=== PATIENT | female | born 1990 | race Caucasian/White ===

== ENCOUNTER 2024-08-15 09:40 | Emergency (ER) | payer OTHER, SELFPAY ==
[2024-08-15 09:47] VITALS: BP 119/100
[2024-08-15 10:32] VITALS: BMI 29.9
[2024-08-15] MEDS: MOTRIN 600 MG PO (11:04)
[2024-08-15 11:24] LABS: COVID-19 Antigen Negative (Negative)
[2024-08-15 12:07] VITALS: BP 126/71
[2024-08-15 12:18] LABS: Urine Albumin Negative (Neg - Trace); Urine Bilirubin Negative (Negative); Urine Character Clear (Clear); Urine Color Yellow; Urine Glucose Negative (Negative); Urine Ketone Negative (Negative); Urine Leukocyte 1+ (Negative); Urine Nitrite Negative (Negative); Urine Occult Blood Negative (Negative); Urine Specific Gravity 1.015 (<1.030); Urine Urobilinogen Negative (Neg - 1+)
[2024-08-15 12:21] LABS: HCG, Urine Qualitative Screen Negative
[2024-08-15 12:36] LABS: Urine Bacteria Moderate (Negative); Urine Red Blood Cell 0-2 /HPF (0-2); Urine Squamous Cell 26-30 /LPF (Few)
--- NOTE | 2024-08-15 12:43 | ED.GENMED ---
History of Present Illness
General
Chief Complaint: Headache
Time Seen by Provider: 08/15/24 10:28
History of Present Illness
History of Present Illness:
33-year-old female presents emergency ferment due to headache and nausea. Patient also has had a cough and chills. Her headache is improving after Tylenol. Drinking water in room.
Past History
Past History
ED Past Medical History: None
ED Past Surgical History: Other ([place] teeth)
Social History
Tobacco: Non-smoker
Alcohol: None
Drug: None
Personal: Single
Living: with family
Phy Exam
Physical Exam
Physical Exam:
Physical Exam
General: no apparent distress, not acutely ill
Neck: supple. no meningeal signs. normal posterior pharynx
Heart: s1/s2 tachycardia, no murmur. equal radial
pulses.
HEENT: Pupils equal round reactive to light, EOMI
Lungs: no acute respiratory distress. clear bilaterally
Abdomen: normal bowel sounds. not tender. no CVAT
Neuro: alert and oriented. no focal neurological deficits cranial nerves II through XII intact
Skin: no rash
Psychiatric: well kept. interactive and cooperative
Extremities: no edema. no calf tenderness. negative homans. good distal pulses
Course
Orders/Labs/Results
Orders:
Orders
08/15/24 10:41
Ibuprofen [Motrin] 600 mg PO NOW STA
08/15/24 10:42
Test Result ONCE
CR Chest - 2 Views Urgent
Comment:
Reason For Exam: chills, cough
08/15/24 10:51
COVID-19 Antigen Urgent
Source: Nasal Swab
Influenza A+B Rapid Molecular Urgent
JUNE Source: Nasal Swab
Specimen Description:
08/15/24 12:10
HCG, Urine Qualitative Screen Urgent
Date Specimen was Collected: 08/15/24
Time Specimen was Collected: 12:08
Urinalysis Reflex To Culture Urgent
Date Specimen was Collected: 08/15/24
Time Specimen was Collected: 12:08
Urine Microscopic Reflex Cult Urgent
Urine Culture Urgent
JUNE Source: U
Specimen Description:
Date Specimen was Collected: 08/15/24
Time Specimen was Collected: 12:08
Abnormal Lab Results
08/15/24
12:10
Leukocyte Esterase Rfl 1+ A
(Negative)
Urine Bacteria (Reflex) Moderate A
(Negative)
Vital Signs
Initial and Last Documented VS:
Initial Vital Signs
Temp Pulse Resp BP Pulse Ox
99.3 F 121 16 119/100 98
08/15/24 09:47 08/15/24 09:47 08/15/24 09:47 08/15/24 09:47 08/15/24 09:47
Last Documented Vital Signs
Temp Pulse Resp BP Pulse Ox
98.1 F 115 16 119/100 97
08/15/24 10:46 08/15/24 10:46 08/15/24 09:47 08/15/24 09:47 08/15/24 10:46
MDM/Problems Addressed
Differential Diagnosis Includes:
UTI, pneumonia
MDM/Problems Addressed:
33 yo female with chills, no signs of pneumonia, UTI or influenza/COVID. Patient stable for discharge. Mild headache, resolving. No meningismus.
*Radiology
Radiology exam reviewed: radiology read reviewed (Chest x-ray no acute findings)
*Pulse Oximetry
Patient hypoxic: no
*Critical Care Note
Total Time (30-74mins, 75-104mins- exclusive of procedures): Not Applicable
Patient Management
Social determinants of health affecting care: Living situation and Strong social support
Escalation/DeEscalation of care consider admission/obs:
Admit not indicated
ED Attending Note
-
Portions of this chart may have been created with voice recognition software.� Occasional wrong word or��sound alike� substitutions may have occurred due to the inherent limitations of voice recognition software.
Discharge Plan
Departure
Patient Disposition: Home (Routine Discharge)
Date of Disposition: 08/15/24
Time of Disposition: 12:47
Patient with high blood pressure during this ER visit?: Yes
Condition: Good
Discharge Problem:
Headache
Instructions: Headache, Adult (DC), BLOOD PRESSURE
Prescriptions:
No Action
dextroamphetamine-amphetamine [Adderall] 30 MG tablet
Referrals:
Graciela Ambrocio DO [Family Provider] - Call in 1-3 days for appt
Interventions
Interventions:
*Risk Screen - Suicide Last Done: 08/15/24 09:47
*General Assessment Last Done: 08/15/24 09:47
*Neglect/Abuse Screening Last Done: 08/15/24 09:47
ED- Fall Risk Assessment Last Done: 08/15/24 10:39
*ED COVID-19 Vaccine History Last Done: 08/15/24 10:38
ED- Neurological Assessment Last Done: 08/15/24 10:38
Discharge Date and Time
Print Language: BURMESE
== END 2024-08-15 13:15 | disposition home or self-care (01) ==
LOC: EMR 09:40
PROVIDERS: EMERGENCY PHYSICIAN Emergency Medicine; FAMILY PHYSICIAN Family Medicine
DX: R51.9 Headache, unspecified (principal); R68.83 Chills (without fever)
CPT/HCPCS: 99284; 71046; 81003; 81015; 81025; 87086; 87502; 87811

== ENCOUNTER 2025-05-09 06:37 | Emergency (ER) | payer OTHER, SELFPAY ==
[2025-05-09 06:40] VITALS: BP 116/77
[2025-05-09 08:00] VITALS: BP 119/74
--- NOTE | 2025-05-09 11:41 | ED.MUSCINJ ---
HPI-Injury
General
Chief Complaint: Fall
Source: patient
Exam Limitations: none
Time Seen by Provider: 05/09/25 07:37
Nursing documentation reviewed up to this point in time: agreed with
History of Present Illness-Injury
Initial Injury comments:
34-year-old female twisted her ankle at [facility] yesterday, has pain in the anterior aspect of the ankle. Has been walking but with a limp.
Past History
Past History
ED Past Medical History: None
ED Past Surgical History: Other ([place] teeth)
Social History
Tobacco: Non-smoker
Alcohol: None
Drug: None
Personal: Single
Living: with family
Review of Systems
Review of Systems
Allergies reviewed?: Yes
All Other Systems: ROS reviewed and negative except as documented in HPI and ROS
Musculoskeletal: Reports other (Pain left ankle)
Musculoskeletal Injury Exam
Musculoskeletal Injury Exam
Left Ankle:
Pain with Movement?: Mild (Anterior surface of ankle)
Tender to palpation?: Mild
Soft tissue swelling?: None
Strain- Sprain- Tear (Connective tissue injury)?: Mild
Joint instability?: No
Malalignment/deformity?: No
Range of motion: Full
Distal skin color and temperature: normal-warm & good color
Capillary Refill: normal
Normal distal neurovascular exam?: Yes
Phy Exam
Physical Exam
Physical Exam:
PHYSICAL EXAMINATION:
General: no apparent distress, not acutely ill
Neuro: alert and oriented.
Psychiatric: well kept. interactive and cooperative
Musculoskeletal: Moves with ease
Skin: Warm, pink.
Injury Course
Orders/Labs/Results
Orders:
Orders
05/09/25 06:44
CR Ankle - Left Min 3 Views Urgent
Comment:
Reason For Exam: injury, pain to medial ankle
05/09/25 07:40
Dallin Wrap Left-Treatment ONCE
MDM/Problems Addressed
Differential Diagnosis Includes:
Sprain versus fracture of ankle
MDM/Problems Addressed:
34-year-old female twisted her ankle at [facility] yesterday, has pain in the anterior aspect of the ankle. Has been walking but with a limp.
Ankle x-ray negative
Dallin wrap applied, patient ambulating comfortably with a mild limp.
*Pulse Oximetry
SaO2: 99
Oxygen Mode of Delivery: Room air
Patient hypoxic: not evaluated
*Critical Care Note
Total Time (30-74mins, 75-104mins- exclusive of procedures): Not Applicable
ED Attending Note
-
Portions of this chart may have been created with voice recognition software.� Occasional wrong word or��sound alike� substitutions may have occurred due to the inherent limitations of voice recognition software.
Discharge Plan
Departure
Patient Disposition: Home (Routine Discharge)
Date of Disposition: 05/09/25
Time of Disposition: 07:41
Patient with high blood pressure during this ER visit?: No
Condition: Good
Discharge Problem:
Left ankle sprain
Instructions: Ankle sprain - ED discharge instructions
Prescriptions:
No Action
dextroamphetamine-amphetamine [Adderall] 30 MG tablet
Referrals:
Kody Hoang MD [Active, Orthopedics] - As needed
Graciela Ambrocio DO [Family Provider, Family Practice]
Stand Alone Forms: Return to Work
Activity Restrictions/Additional Instructions:
As we discussed, Tylenol or ibuprofen as needed for pain. Wear the Dallin wrap for up to 5 days as needed for comfort and support.
Rested today and tomorrow, elevated to the level of your heart and apply cool compresses off and on for 20 minutes.
See the orthopedic doctor if your ankle is not a lot better in 1 week or not 100% better in 3 weeks.
Interventions
Interventions:
*Risk Screen - Suicide Last Done: 05/09/25 06:40
*General Assessment Last Done: 05/09/25 06:40
*Neglect/Abuse Screening Last Done: 05/09/25 06:40
*Nursing Disposition Last Done: 05/09/25 08:07
ED-Musculoskeletal Assessment Last Done: 05/09/25 08:00
ED- Neurological Assessment Last Done: 05/09/25 08:00
ED-Skin Assessment Last Done: 05/09/25 08:00
Discharge Date and Time
Discharge Date/Time: 05/09/25 08:08
Print Language: FRENCH
== END 2025-05-09 08:08 | disposition home or self-care (01) ==
LOC: EMR 06:37
PROVIDERS: EMERGENCY PHYSICIAN Student in an Organized Health Care Education/Training Program; FAMILY PHYSICIAN Family Medicine
DX: S93.402A Sprain of unspecified ligament of left ankle, initial encounter (principal); X50.1XXA Overexertion from prolonged static or awkward postures, initial encounter
CPT/HCPCS: 99283; 73610